=== PATIENT | male | born 1955 | race Caucasian/White ===

== ENCOUNTER → 2023-06-05 | Outpatient (REF) | payer MEDICARE, MEDICAID ==
[2023-06-05 13:02] LABS: HEMATOCRIT 35.8 % (42.0-52.0); HEMOGLOBIN 10.9 g/dl (13.5-17.5); MEAN CORPUSCULAR HEMOGLOBIN 30.3 pg (27.0-33.0); MEAN CORPUSCULAR HGB CONC 30.4 g/dl (32.0-36.5); MEAN CORPUSCULAR VOLUME 99.4 fl (80.0-96.0); PLATELET COUNT, AUTOMATED 290 10^3/uL (150-450); WHITE BLOOD COUNT 12.2 10^3/uL (4.0-10.0)
== END ==
LOC: SKLAB5 11:58
PROVIDERS: ATTEND Internal Medicine
DX: K62.5 Hemorrhage of anus and rectum (principal)

== ENCOUNTER → 2023-06-05 | Outpatient (REF) | payer MEDICARE, MEDICAID ==
[2023-06-05 09:39] LABS: THYROID STIMULATING HORMONE 2.241 uIU/ML (0.55-4.78)
[2023-06-05 09:40] LABS: FOLATE > 24.00 NG/ML (>5.4); VITAMIN B12 LEVEL 608 PG/ML (211-911)
[2023-06-05 09:48] LABS: ALBUMIN 2.7 G/DL (3.2-5.2); ALKALINE PHOSPHATASE 62 U/L (46-116); ALT/SGPT 34 U/L (7.0-40); AST/SGOT 14 U/L (<34); BILIRUBIN,TOTAL 0.3 MG/DL (0.3-1.2); BLOOD UREA NITROGEN 23 MG/DL (9-23); CALCIUM LEVEL 10.6 MG/DL (8.3-10.6); CARBON DIOXIDE LEVEL > 40.0 MMOL/L (20-31); CHLORIDE LEVEL 96 MMOL/L (98-107); CREATININE FOR GFR 0.64 MG/DL (0.70-1.30); GLOMERULAR FILTRATION RATE > 60.0 (>49); GLUCOSE, FASTING 93 MG/DL (74-106); POTASSIUM SERUM 4.5 MMOL/L (3.5-5.1); SODIUM LEVEL 146 MMOL/L (136-145); TOTAL PROTEIN 5.7 G/DL (5.7-8.2)
== END ==
LOC: SKLAB5 08:14
PROVIDERS: ATTEND Nurse Practitioner Family
DX: G40.909 Epilepsy, unspecified, not intractable, without status epilepticus (principal); Z79.899 Other long term (current) drug therapy; K62.5 Hemorrhage of anus and rectum

== ENCOUNTER → 2023-06-26 | Outpatient (REF) | payer MEDICARE, MEDICAID ==
[~2023-06-26] MED LIST: ALB2.5NEB NEB; ALBU8.5H INH; ALPR0.25 PO; APAP325T4 PO; BISA10SU20 PR; BUDE0.254 NEB; CALCCAP4 PO; COLA100C5 PO; DULO30CA47 PO; DULO60CA35 PO; ENSULIQ51 PO; FERR1TAB8 PO; FINA1TAB12 PO; FINA5TAB2 PO; FLEEENE12 PR; FLOM0.4C39 PO; FLON1SPR NARES; FORM20VI2 INH; FURO20TA2 PO; GABA-1171 PO; LEVE750T5 PO; METO50TA7 PO; MOM30SS2 PO; MONT10TA97 PO; OMEP1CAP73 PO; ONDA-83 PO; OXYC-517 PO; PRED10TA2 PO; ROPI0.5T33 PO; YUPE175S INH; ZOLO100T PO
== END ==
LOC: SKLAB5 09:45
PROVIDERS: ATTEND Internal Medicine
DX: J44.9 Chronic obstructive pulmonary disease, unspecified (principal)

== ENCOUNTER → 2023-07-03 | Outpatient (REF) | payer MEDICARE, MEDICAID ==
[~2023-07-03] MED LIST changes: +ALB2.5NEB INH; -ALB2.5NEB NEB; +BACI1CAP PO; +BUDE0.254 INH; -BUDE0.254 NEB; +GUAI600T54 PO; +LEVO1TAB40 PO; +POLY17PO18 PO
[2023-07-03 13:06] LABS: BASO % 0.2 % (0.0-1.0); EOS # 0.2 10^3/uL (0.0-0.5); EOS % 1.6 % (0.0-3.0); HEMATOCRIT 33.6 % (42.0-52.0); LYMPH # 0.7 10^3/uL (1.5-5.0); LYMPH % 6.8 % (24.0-44.0); MEAN CORPUSCULAR HEMOGLOBIN 29.9 pg (27.0-33.0); MEAN CORPUSCULAR HGB CONC 29.8 g/dl (32.0-36.5); MEAN CORPUSCULAR VOLUME 100.3 fl (80.0-96.0); MONO # 1.1 10^3/uL (0.0-0.8); MONO % 10.9 % (2.0-8.0); NEUTROPHILS % 79.9 % (36.0-66.0); PLATELET COUNT, AUTOMATED 205 10^3/uL (150-450); RED BLOOD COUNT 3.35 10^6/uL (4.30-6.10)
[2023-07-03 13:27] LABS: ALBUMIN 2.5 G/DL (3.2-5.2); ALKALINE PHOSPHATASE 69 U/L (46-116); ALT/SGPT 26 U/L (7.0-40); AST/SGOT 13 U/L (<34); BILIRUBIN,TOTAL 0.2 MG/DL (0.3-1.2); BLOOD UREA NITROGEN 15 MG/DL (9-23); CALCIUM LEVEL 8.7 MG/DL (8.3-10.6); CARBON DIOXIDE LEVEL > 40.0 MMOL/L (20-31); CHLORIDE LEVEL 98 MMOL/L (98-107); CREATININE FOR GFR 0.48 MG/DL (0.70-1.30); GLOMERULAR FILTRATION RATE > 60.0 (>49); GLUCOSE, FASTING 92 MG/DL (74-106); POTASSIUM SERUM 4.4 MMOL/L (3.5-5.1); SODIUM LEVEL 143 MMOL/L (136-145); TOTAL PROTEIN 5.1 G/DL (5.7-8.2)
== END ==
LOC: SKLAB5 12:14
PROVIDERS: ATTEND Nurse Practitioner Family
DX: J44.9 Chronic obstructive pulmonary disease, unspecified (principal); R11.0 Nausea; K59.00 Constipation, unspecified; R06.02 Shortness of breath

== ENCOUNTER 2023-07-04 14:50 | Inpatient (IN) | payer MEDICARE, MEDICAID ==
[~2023-07-04] VITALS: Ht 175.3 cm; Wt 50.0 kg
[~2023-07-04 14:50] MED LIST changes: -BACI1CAP PO; -GUAI600T54 PO; -LEVO1TAB40 PO; -POLY17PO18 PO
[2023-07-04] MEDS ORDERED: ALBUTEROL SULFATE 2.5MG/0.5ML INH NEB SOLN INH ONE (15:00)
[2023-07-04] MEDS ORDERED: methylPREDNISolone 125MG 2ML VIAL IV ONE (15:00)
[2023-07-04] MEDS ORDERED: IPRATROPIUM 0.5MG/ALBUTEROL 2.5MG INH SOL UD 3ML (DUONEB) NEB ONE (15:00)
[2023-07-04 15:15] LABS: ABG BASE EXCESS 9.4 (-2.0-2.0); ABG HCO3 37.1 MMOL/L (22.0-26.0); ABG PARTIAL PRESSURE O2 84.2 mmHg (75.0-100.0); ABG STANDARD HCO3 33.1 MMOL/L. (22.0-26.0); ABG TOTAL CO2 39.2 MMOL/L (23.0-31.0); ABG pH (ARTERIAL) 7.354 UNITS (7.350-7.450)
[2023-07-04 15:16] LABS: ABG PARTIAL PRESSURE CO2 68.2 mmHg (35.0-45.0)
[2023-07-04 15:19] LABS: BASO % 0.1 % (0.0-1.0); HEMATOCRIT 34.9 % (42.0-52.0); HEMOGLOBIN 10.6 g/dl (13.5-17.5); LYMPH # 0.4 10^3/uL (1.5-5.0); LYMPH % 3.2 % (24.0-44.0); MEAN CORPUSCULAR HEMOGLOBIN 30.3 pg (27.0-33.0); MEAN CORPUSCULAR HGB CONC 30.4 g/dl (32.0-36.5); MEAN CORPUSCULAR VOLUME 99.7 fl (80.0-96.0); MONO # 0.1 10^3/uL (0.0-0.8); NEUTROPHILS # 12.2 10^3/uL (1.5-8.5); NEUTROPHILS % 95.2 % (36.0-66.0); PLATELET COUNT, AUTOMATED 199 10^3/uL (150-450); WHITE BLOOD COUNT 12.8 10^3/uL (4.0-10.0)
[2023-07-04 15:34] LABS: INR 1.12
[2023-07-04 15:45] LABS: CK-MB VALUE MASS 1.9 NG/ML (<3.6)
[2023-07-04] MEDS ORDERED: ISOVUE-370 76% 100ML VIAL As Ordered ONE (15:46)
[2023-07-04 15:48] LABS: CPK CREATINE PHOSPHOKINASE 34 U/L (46-171); MB/CK RELATIVE INDEX 5.58 (< OR =4)
[2023-07-04 15:49] LABS: THYROXINE (T4) 7.3 UG/DL (4.5-10.9)
[2023-07-04 15:50] LABS: ALBUMIN 3.1 G/DL (3.2-5.2); ALKALINE PHOSPHATASE 79 U/L (46-116); ALT/SGPT 24 U/L (7.0-40); AST/SGOT 10 U/L (<34); BILIRUBIN,DIRECT < 0.1 MG/DL (<0.4); BILIRUBIN,TOTAL 0.2 MG/DL (0.3-1.2); BLOOD UREA NITROGEN 15 MG/DL (9-23); CALCIUM LEVEL 9.1 MG/DL (8.3-10.6); CARBON DIOXIDE LEVEL > 40.0 MMOL/L (20-31); CHLORIDE LEVEL 95 MMOL/L (98-107); CREATININE FOR GFR 0.53 MG/DL (0.70-1.30); GLOMERULAR FILTRATION RATE > 60.0 (>49); GLUCOSE, FASTING 155 MG/DL (74-106); POTASSIUM SERUM 5.2 MMOL/L (3.5-5.1); SODIUM LEVEL 140 MMOL/L (136-145); THYROID STIMULATING HORMONE 0.579 uIU/ML (0.55-4.78); TOTAL PROTEIN 6.6 G/DL (5.7-8.2)
[2023-07-04] MEDS ORDERED: ACETAMINOPHEN TAB 650MG DOSE (2X325MG) PO ONE (16:30)
[2023-07-04 16:44] LABS: CK-MB VALUE MASS < 1.0 NG/ML (<3.6)
[2023-07-04 16:48] LABS: CPK CREATINE PHOSPHOKINASE 36 U/L (46-171); MB/CK RELATIVE INDEX 2.77 (< OR =4)
[2023-07-04] MEDS ORDERED: IPRATROPIUM 0.5MG/ALBUTEROL 2.5MG INH SOL UD 3ML (DUONEB) NEB PRN (17:50)
[2023-07-04] MEDS: IPRATROPIUM 0.5MG/ALBUTEROL 2.5MG INH SOL UD 3ML (DUONEB) NEB SCH (19:49)
[2023-07-04] MEDS: BUDESONIDE 180MCG INHALER (PULMICORT FLEXHALER) INH SCH (20:00)
[2023-07-04] MEDS: AZITHROMYCIN 250MG TABLET PO SCH (20:47)
[2023-07-04] MEDS: cefTRIAXone SOD 2 GM in D5W MINI-BAG PLUS 50 ML IV SCH (20:47)
[2023-07-04] MEDS: methylPREDNISolone 40MG 1ML VIAL IV SCH (20:47)
[2023-07-04] MEDS: guaiFENesin 200 MG TAB PO SCH (22:24)
[2023-07-05] MEDS ORDERED: TAMSULOSIN 0.4 MG CAP PO ONE
[2023-07-05] MEDS ORDERED: levETIRAcetam 250MG TABLET (KEPPRA) PO ONE
[2023-07-05] MEDS: guaiFENesin 200 MG TAB PO SCH ×7 (00:41→23:45)
[2023-07-05] MEDS: IPRATROPIUM 0.5MG/ALBUTEROL 2.5MG INH SOL UD 3ML (DUONEB) NEB SCH ×4 (02:25→19:24)
[2023-07-05 07:25] LABS: HEMATOCRIT 32.4 % (42.0-52.0); HEMOGLOBIN 9.9 g/dl (13.5-17.5); LYMPH # 0.3 10^3/uL (1.5-5.0); MEAN CORPUSCULAR HGB CONC 30.6 g/dl (32.0-36.5); MEAN CORPUSCULAR VOLUME 98.2 fl (80.0-96.0); MONO # 0.6 10^3/uL (0.0-0.8); MONO % 7.2 % (2.0-8.0); NEUTROPHILS # 7.3 10^3/uL (1.5-8.5); NEUTROPHILS % 88.2 % (36.0-66.0); PLATELET COUNT, AUTOMATED 174 10^3/uL (150-450); WHITE BLOOD COUNT 8.3 10^3/uL (4.0-10.0)
[2023-07-05 07:55] LABS: BLOOD UREA NITROGEN 15 MG/DL (9-23); CALCIUM LEVEL 8.6 MG/DL (8.3-10.6); CARBON DIOXIDE LEVEL > 40.0 MMOL/L (20-31); CHLORIDE LEVEL 97 MMOL/L (98-107); CREATININE FOR GFR 0.46 MG/DL (0.70-1.30); GLOMERULAR FILTRATION RATE > 60.0 (>49); GLUCOSE, FASTING 122 MG/DL (74-106); MAGNESIUM LEVEL 2.1 MG/DL (1.8-2.4); SODIUM LEVEL 144 MMOL/L (136-145)
[2023-07-05] MEDS ORDERED: GUAI600T54 PO (09:27)
[2023-07-05] MEDS ORDERED: LEVO1TAB40 PO (09:27)
[2023-07-05] MEDS ORDERED: BACI1CAP PO (09:36)
[2023-07-05] MEDS ORDERED: POLY17PO18 PO (09:36)
[2023-07-05] MEDS: methylPREDNISolone 40MG 1ML VIAL IV SCH ×2 (09:42→20:17)
[2023-07-05] MEDS ORDERED: MED REC IN PROGRESS XX SCH (09:50)
[2023-07-05] MEDS ORDERED: PRED10TA2 PO (10:22)
[2023-07-05] MEDS: BUDESONIDE 180MCG INHALER (PULMICORT FLEXHALER) INH SCH ×2 (10:57→19:24)
[2023-07-05] MEDS: dilTIAZem 120MG **CD** CAPSULE PO SCH (11:15)
[2023-07-05] MEDS: ENOXAPARIN 40MG/0.4ML SYRINGE (J1650 PER 10MG) SC SCH (11:15)
[2023-07-05] MEDS: levETIRAcetam 250MG TABLET (KEPPRA) PO SCH ×2 (11:16→20:16)
[2023-07-05] MEDS: FORMOTEROL FUMARATE 20 MCG/2 ML INHALATION SOLUTION (PERFOROMIST) INH SCH ×2 (11:36→19:24)
[2023-07-05 14:49] VITALS: BP 133/69; TEMP 98.5; O2SAT 99
[2023-07-05] MEDS ORDERED: HOME MED LIST COMPLETE! XX SCH (15:05)
[2023-07-05] MEDS: ACETAMINOPHEN TAB 650MG DOSE (2X325MG) PO PRN (16:25)
[2023-07-05 19:09] VITALS: BP 123/67; TEMP 98.3; O2SAT 97
[2023-07-05] MEDS: AZITHROMYCIN 250MG TABLET PO SCH (20:16)
[2023-07-05] MEDS: TAMSULOSIN 0.4 MG CAP PO SCH (20:16)
[2023-07-05] MEDS: MONTELUKAST 10 MG TAB PO SCH (20:17)
[2023-07-05] MEDS: cefTRIAXone SOD 2 GM in D5W MINI-BAG PLUS 50 ML IV SCH (20:17)
[2023-07-05 23:32] VITALS: BP 137/66; TEMP 98.3; O2SAT 95
[2023-07-05] MEDS: oxyCODONE 5MG TAB PO PRN (23:45)
[2023-07-06] MEDS: IPRATROPIUM 0.5MG/ALBUTEROL 2.5MG INH SOL UD 3ML (DUONEB) NEB SCH ×5 (01:08→23:53)
[2023-07-06 03:57] VITALS: BP 124/70; TEMP 98.6; O2SAT 97
[2023-07-06] MEDS: guaiFENesin 200 MG TAB PO SCH ×5 (04:17→20:52)
[2023-07-06] MEDS: oxyCODONE 5MG TAB PO PRN ×2 (06:43→16:16)
[2023-07-06 07:06] LABS: BASO % 0.1 % (0.0-1.0); HEMATOCRIT 33.3 % (42.0-52.0); HEMOGLOBIN 10.1 g/dl (13.5-17.5); LYMPH # 0.5 10^3/uL (1.5-5.0); LYMPH % 3.8 % (24.0-44.0); MEAN CORPUSCULAR HEMOGLOBIN 30.1 pg (27.0-33.0); MEAN CORPUSCULAR HGB CONC 30.3 g/dl (32.0-36.5); MEAN CORPUSCULAR VOLUME 99.4 fl (80.0-96.0); MONO % 8.3 % (2.0-8.0); NEUTROPHILS # 10.4 10^3/uL (1.5-8.5); NEUTROPHILS % 87.3 % (36.0-66.0); PLATELET COUNT, AUTOMATED 191 10^3/uL (150-450); RED BLOOD COUNT 3.35 10^6/uL (4.30-6.10)
[2023-07-06 07:40] LABS: BLOOD UREA NITROGEN 20 MG/DL (9-23); CALCIUM LEVEL 8.7 MG/DL (8.3-10.6); CARBON DIOXIDE LEVEL > 40.0 MMOL/L (20-31); CHLORIDE LEVEL 100 MMOL/L (98-107); GLOMERULAR FILTRATION RATE > 60.0 (>49); GLUCOSE, FASTING 97 MG/DL (74-106); MAGNESIUM LEVEL 2.1 MG/DL (1.8-2.4); POTASSIUM SERUM 4.1 MMOL/L (3.5-5.1); SODIUM LEVEL 144 MMOL/L (136-145)
[2023-07-06 07:49] VITALS: BP 134/67; TEMP 97.2; O2SAT 99
[2023-07-06] MEDS: BUDESONIDE 180MCG INHALER (PULMICORT FLEXHALER) INH SCH ×2 (08:04→20:35)
[2023-07-06] MEDS: FORMOTEROL FUMARATE 20 MCG/2 ML INHALATION SOLUTION (PERFOROMIST) INH SCH ×2 (08:04→20:35)
[2023-07-06] MEDS: dilTIAZem 120MG **CD** CAPSULE PO SCH (08:41)
[2023-07-06] MEDS: ENOXAPARIN 40MG/0.4ML SYRINGE (J1650 PER 10MG) SC SCH (08:42)
[2023-07-06] MEDS: levETIRAcetam 250MG TABLET (KEPPRA) PO SCH ×2 (08:42→20:52)
[2023-07-06] MEDS: ACETAMINOPHEN TAB 650MG DOSE (2X325MG) PO PRN ×2 (08:43→19:57)
[2023-07-06] MEDS ORDERED: predniSONE 20 MG TAB PO SCH (09:00)
[2023-07-06 12:02] VITALS: BP 136/62; TEMP 98.2; O2SAT 97
[2023-07-06] MEDS: METOPROLOL TART 50 MG TAB PO SCH (12:04)
[2023-07-06] MEDS ORDERED: SODIUM CHLORIDE 0.9% NASAL GEL 15GM (AYR) PRN (16:00)
[2023-07-06 16:07] VITALS: BP 130/66; TEMP 97.5; O2SAT 98
[2023-07-06 19:22] VITALS: BP 122/76; TEMP 99; O2SAT 94
[2023-07-06] MEDS: ONDANSETRON 4MG 2ML VIAL IV PRN (19:53)
[2023-07-06] MEDS: cefTRIAXone SOD 2 GM in D5W MINI-BAG PLUS 50 ML IV SCH (19:53)
[2023-07-06 19:57] VITALS: O2SAT 94
[2023-07-06] MEDS: MONTELUKAST 10 MG TAB PO SCH (20:52)
[2023-07-06] MEDS: TAMSULOSIN 0.4 MG CAP PO SCH (20:52)
[2023-07-06] MEDS: AZITHROMYCIN 250MG TABLET PO SCH (20:52)
[2023-07-07] VITALS (7 sets, daily range): BP systolic 108–129; BP diastolic 58–87; TEMP 97.3–98.8; O2SAT 95–100
[2023-07-07] MEDS: guaiFENesin 200 MG TAB PO SCH ×6 (00:19→21:21)
[2023-07-07] MEDS: oxyCODONE 5MG TAB PO PRN ×5 (00:19→23:00)
[2023-07-07] MEDS: ACETAMINOPHEN TAB 650MG DOSE (2X325MG) PO PRN ×3 (04:10→21:22)
[2023-07-07 06:28] LABS: BASO % 0.1 % (0.0-1.0); EOS # 0.1 10^3/uL (0.0-0.5); EOS % 0.7 % (0.0-3.0); HEMATOCRIT 36.1 % (42.0-52.0); HEMOGLOBIN 10.7 g/dl (13.5-17.5); LYMPH # 0.9 10^3/uL (1.5-5.0); MEAN CORPUSCULAR HEMOGLOBIN 30.1 pg (27.0-33.0); MEAN CORPUSCULAR HGB CONC 29.6 g/dl (32.0-36.5); MEAN CORPUSCULAR VOLUME 101.4 fl (80.0-96.0); MONO # 0.8 10^3/uL (0.0-0.8); MONO % 8.9 % (2.0-8.0); NEUTROPHILS # 6.8 10^3/uL (1.5-8.5); NEUTROPHILS % 79.8 % (36.0-66.0); PLATELET COUNT, AUTOMATED 161 10^3/uL (150-450); RED BLOOD COUNT 3.56 10^6/uL (4.30-6.10); WHITE BLOOD COUNT 8.5 10^3/uL (4.0-10.0)
[2023-07-07 06:54] LABS: BLOOD UREA NITROGEN 13 MG/DL (9-23); CALCIUM LEVEL 8.3 MG/DL (8.3-10.6); CARBON DIOXIDE LEVEL > 40.0 MMOL/L (20-31); CHLORIDE LEVEL 100 MMOL/L (98-107); CREATININE FOR GFR 0.47 MG/DL (0.70-1.30); GLOMERULAR FILTRATION RATE > 60.0 (>49); GLUCOSE, FASTING 85 MG/DL (74-106); MAGNESIUM LEVEL 1.9 MG/DL (1.8-2.4); POTASSIUM SERUM 3.9 MMOL/L (3.5-5.1); SODIUM LEVEL 143 MMOL/L (136-145)
[2023-07-07] MEDS: IPRATROPIUM 0.5MG/ALBUTEROL 2.5MG INH SOL UD 3ML (DUONEB) NEB SCH ×3 (08:11→21:27)
[2023-07-07] MEDS: FORMOTEROL FUMARATE 20 MCG/2 ML INHALATION SOLUTION (PERFOROMIST) INH SCH ×2 (08:11→21:34)
[2023-07-07] MEDS: BUDESONIDE 180MCG INHALER (PULMICORT FLEXHALER) INH SCH ×2 (08:11→21:35)
[2023-07-07] MEDS: levETIRAcetam 250MG TABLET (KEPPRA) PO SCH ×2 (08:31→21:21)
[2023-07-07] MEDS: ENOXAPARIN 40MG/0.4ML SYRINGE (J1650 PER 10MG) SC SCH (08:32)
[2023-07-07] MEDS: METOPROLOL TART 50 MG TAB PO SCH (08:32)
[2023-07-07] MEDS: ONDANSETRON 4MG 2ML VIAL IV PRN ×2 (10:01→17:53)
[2023-07-07] MEDS ORDERED: MAGNESIUM CITRATE 300ML BTL PO ONE (18:00)
[2023-07-07] MEDS: SENOKOT S TAB PO SCH (21:21)
[2023-07-07] MEDS: TAMSULOSIN 0.4 MG CAP PO SCH (21:21)
[2023-07-07] MEDS: MONTELUKAST 10 MG TAB PO SCH (21:21)
[2023-07-07] MEDS: CEFDINIR 300 MG CAP (OMNICEF) PO SCH (21:21)
[2023-07-07] MEDS ORDERED: LEVALBUTEROL 1.25MG 0.5ML CONCENTRATE NEB NEB ONE (22:35)
[2023-07-07] MEDS ORDERED: NS 500 ML IV ONE (23:00)
[2023-07-08] VITALS (22 sets, daily range): BP systolic 88–173; BP diastolic 52–83; TEMP 97.6–98.9; O2SAT 66–99
[2023-07-08] MEDS: guaiFENesin 200 MG TAB PO SCH ×6 (00:39→19:55)
[2023-07-08] MEDS: ONDANSETRON 4MG 2ML VIAL IV PRN (00:39)
[2023-07-08] MEDS ORDERED: CALCIUM CARBONATE 500 MG CHEW U/D PO ONE (01:10)
[2023-07-08] MEDS: IPRATROPIUM 0.5MG/ALBUTEROL 2.5MG INH SOL UD 3ML (DUONEB) NEB SCH ×4 (02:18→19:27)
[2023-07-08] MEDS: ACETAMINOPHEN TAB 650MG DOSE (2X325MG) PO PRN (04:54)
[2023-07-08 06:14] LABS: BLOOD UREA NITROGEN 12 MG/DL (9-23); CALCIUM LEVEL 8.3 MG/DL (8.3-10.6); CARBON DIOXIDE LEVEL > 40.0 MMOL/L (20-31); CHLORIDE LEVEL 102 MMOL/L (98-107); CREATININE FOR GFR 0.46 MG/DL (0.70-1.30); GLOMERULAR FILTRATION RATE > 60.0 (>49); GLUCOSE, FASTING 99 MG/DL (74-106); MAGNESIUM LEVEL 2.2 MG/DL (1.8-2.4); POTASSIUM SERUM 4.3 MMOL/L (3.5-5.1); SODIUM LEVEL 143 MMOL/L (136-145)
[2023-07-08 08:10] LABS: ABG BASE EXCESS 5.1 (-2.0-2.0); ABG HCO3 35.6 MMOL/L (22.0-26.0); ABG O2 SATURATION 97.1 % (95.0-99.0); ABG PARTIAL PRESSURE O2 101.6 mmHg (75.0-100.0); ABG TOTAL CO2 38.4 MMOL/L (23.0-31.0)
[2023-07-08 08:14] LABS: ABG PARTIAL PRESSURE CO2 91.5 mmHg (35.0-45.0); ABG pH (ARTERIAL) 7.208 UNITS (7.350-7.450)
[2023-07-08] MEDS: FORMOTEROL FUMARATE 20 MCG/2 ML INHALATION SOLUTION (PERFOROMIST) INH SCH ×2 (08:45→19:27)
[2023-07-08] MEDS ORDERED: methylPREDNISolone 125MG 2ML VIAL IV ONE (09:00)
[2023-07-08] MEDS ORDERED: BISACODYL 10MG SUPP PR SCH (09:00)
[2023-07-08] MEDS ORDERED: METOPROLOL TART 25 MG TABLET PO SCH (09:00)
[2023-07-08] MEDS: ENOXAPARIN 40MG/0.4ML SYRINGE (J1650 PER 10MG) SC SCH (09:33)
[2023-07-08] MEDS: SENOKOT S TAB PO SCH ×2 (11:23→19:55)
[2023-07-08] MEDS: CEFDINIR 300 MG CAP (OMNICEF) PO SCH (11:23)
[2023-07-08] MEDS: levETIRAcetam INJection 750 MG in D5W 100 ML IV SCH ×2 (11:24→21:42)
[2023-07-08] MEDS: BUDESONIDE 0.5 MG/2 ML INHALATION SUSPENSION NEB SCH ×2 (11:34→19:26)
[2023-07-08 12:58] LABS: VENOUS BASE EXCESS 13.8 (-2.0-2.0); VENOUS HCO3 44.2 MMOL/L (23.0-27.0); VENOUS O2 SATURATION 92.8 % (60.0-80.0); VENOUS PARTIAL PRESSURE CO2 93.8 mmHg (38.0-50.0); VENOUS PARTIAL PRESSURE O2 65.3 mmHg (30.0-50.0); VENOUS PH 7.291 UNITS (7.330-7.430); VENOUS STANDARD HCO3 37.5 MMOL/L; VENOUS TOTAL CO2 47.1 MMOL/L (24.0-28.0)
[2023-07-08 15:02] LABS: VENOUS BASE EXCESS 13.3 (-2.0-2.0); VENOUS HCO3 43.9 MMOL/L (23.0-27.0); VENOUS O2 SATURATION 99.3 % (60.0-80.0); VENOUS PARTIAL PRESSURE CO2 95.2 mmHg (38.0-50.0); VENOUS PARTIAL PRESSURE O2 203.1 mmHg (30.0-50.0); VENOUS PH 7.282 UNITS (7.330-7.430); VENOUS STANDARD HCO3 37.2 MMOL/L; VENOUS TOTAL CO2 46.9 MMOL/L (24.0-28.0)
[2023-07-08] MEDS: methylPREDNISolone 40MG 1ML VIAL IV SCH ×2 (15:45→21:42)
[2023-07-08] MEDS ORDERED: cefTRIAXone SOD 1 GM in D5W MINI-BAG PLUS 50 ML IV SCH (16:00)
[2023-07-08 18:13] LABS: VENOUS BASE EXCESS 12.8 (-2.0-2.0); VENOUS HCO3 39.4 MMOL/L (23.0-27.0); VENOUS O2 SATURATION 99.3 % (60.0-80.0); VENOUS PARTIAL PRESSURE CO2 60.8 mmHg (38.0-50.0); VENOUS PARTIAL PRESSURE O2 201.3 mmHg (30.0-50.0); VENOUS SITE NOT GIVEN; VENOUS STANDARD HCO3 36.6 MMOL/L; VENOUS TOTAL CO2 41.3 MMOL/L (24.0-28.0)
[2023-07-08] MEDS: TAMSULOSIN 0.4 MG CAP PO SCH (19:55)
[2023-07-08] MEDS: MONTELUKAST 10 MG TAB PO SCH (19:56)
[2023-07-09] VITALS (68 sets, daily range): BP systolic 55–218; BP diastolic 37–116; TEMP 97.5–98.2; O2SAT 77–100
[2023-07-09] MEDS: guaiFENesin 200 MG TAB PO SCH (01:00)
[2023-07-09] MEDS: IPRATROPIUM 0.5MG/ALBUTEROL 2.5MG INH SOL UD 3ML (DUONEB) NEB SCH ×3 (02:38→13:30)
[2023-07-09] MEDS ORDERED: MIDAZOLAM 100MG/100ML-0.9%NACL 100 MG in IV 1 EA IV SCH (03:20)
[2023-07-09] MEDS ORDERED: D5W/LR 1,000 ML IV SCH (03:20)
[2023-07-09] MEDS ORDERED: NS 500 ML IV ONE ×3 (03:20→04:30)
[2023-07-09] MEDS ORDERED: MIDAZOLAM INJ 2MG/2ML VIAL As Ordered ONE ×2 (03:23→03:26)
[2023-07-09] MEDS ORDERED: MIDAZOLAM INJ 2MG/2ML VIAL IV STA ×2 (03:25→04:33)
[2023-07-09] MEDS ORDERED: dilTIAZem 25MG/5ML VIAL IV STA (03:26)
[2023-07-09] MEDS ORDERED: MIDAZOLAM INJ 2MG/2ML VIAL IV ONE (04:00)
[2023-07-09] MEDS ORDERED: MIDAZOLAM 5MG/ML 1ML VIAL As Ordered ONE (04:30)
[2023-07-09] MEDS ORDERED: fentaNYL CITRATE/NaCl 1,000 MCG in IV 1 EA IV SCH (04:35)
[2023-07-09] MEDS ORDERED: FENTANYL DRIP LOCK BOX KEY 1 EACH XX PRN (04:35)
[2023-07-09] MEDS: methylPREDNISolone 40MG 1ML VIAL IV SCH ×2 (04:55→09:02)
[2023-07-09] MEDS ORDERED: levETIRAcetam INJection 500 MG in D5W MINI-BAG PLUS 100 ML IV ONE (05:00)
[2023-07-09 05:03] LABS: ABG BASE EXCESS 5.1 (-2.0-2.0); ABG HCO3 34.1 MMOL/L (22.0-26.0); ABG O2 SATURATION 99.6 % (95.0-99.0); ABG PARTIAL PRESSURE O2 348.3 mmHg (75.0-100.0); ABG STANDARD HCO3 29.1 MMOL/L. (22.0-26.0); ABG TOTAL CO2 36.5 MMOL/L (23.0-31.0); ABG pH (ARTERIAL) 7.264 UNITS (7.350-7.450)
[2023-07-09 06:08] LABS: BLOOD UREA NITROGEN 20 MG/DL (9-23); CALCIUM LEVEL 7.9 MG/DL (8.3-10.6); CARBON DIOXIDE LEVEL 36 MMOL/L (20-31); CHLORIDE LEVEL 103 MMOL/L (98-107); CREATININE FOR GFR 0.52 MG/DL (0.70-1.30); GLOMERULAR FILTRATION RATE > 60.0 (>49); GLUCOSE, FASTING 158 MG/DL (74-106); MAGNESIUM LEVEL 2.1 MG/DL (1.8-2.4); POTASSIUM SERUM 5.5 MMOL/L (3.5-5.1); SODIUM LEVEL 142 MMOL/L (136-145)
[2023-07-09] MEDS: BUDESONIDE 0.5 MG/2 ML INHALATION SUSPENSION NEB SCH (08:07)
[2023-07-09] MEDS: FORMOTEROL FUMARATE 20 MCG/2 ML INHALATION SOLUTION (PERFOROMIST) INH SCH (08:07)
[2023-07-09] MEDS ORDERED: MIDAZOLAM INJ 2MG/2ML VIAL IV PRN (08:50)
[2023-07-09] MEDS ORDERED: levETIRAcetam INJection 1,000 MG in D5W 100 ML IV SCH (09:00)
[2023-07-09] MEDS: ENOXAPARIN 40MG/0.4ML SYRINGE (J1650 PER 10MG) SC SCH (09:03)
[2023-07-09] MEDS ORDERED: propofoL 1,000 MG in IV 1 EA IV SCH (09:10)
[2023-07-09] MEDS ORDERED: PROPOFOL 1,000 MG/100 ML VIAL As Ordered ONE (09:12)
[2023-07-09] MEDS ORDERED: DEXTROSE 50% 50ML SYRINGE IV STA (09:37)
[2023-07-09] MEDS ORDERED: HumuLIN R (REGULAR) INSULIN (NovoLIN R) **100U/ML** PER UNIT IV STA (09:37)
[2023-07-09] MEDS ORDERED: CALCIUM GLUCONATE 1,000 MG in D5W MINI-BAG PLUS 100 ML IV ONE (09:40)
[2023-07-09] MEDS ORDERED: FUROSEMIDE 20MG/2ML VIAL IV ONE (09:40)
[2023-07-09] MEDS ORDERED: LR 500 ML IV ONE (10:45)
[2023-07-09] MEDS ORDERED: NOREPINEPHRINE BITARTRATE 16 MG in D5W 484 ML IV SCH (11:10)
[2023-07-09] MEDS ORDERED: NOREPINEPHRINE 4MG IN D5 250ML 4 MG in IV 1 EA IV SCH ×2 (11:25)
[2023-07-09] MEDS ORDERED: MORPHINE 2 MG/ML 1ML VIAL IV PRN (13:00)
[2023-07-09] MEDS ORDERED: ONDANSETRON 4MG 2ML VIAL IV PRN (13:00)
[2023-07-09] MEDS ORDERED: LORazepam 2 MG/ML 1ML VIAL IV PRN (13:00)
[2023-07-09] MEDS ORDERED: HYOSCYAMINE SULFATE 0.125 MG SUBL TABLET PO PRN (13:00)
[2023-07-09] MEDS ORDERED: ATROPINE SULFATE 1% OPHTH SOLN 2ML BTL SL PRN (13:00)
[2023-07-09] MEDS: MORPHINE 2 MG/ML 1ML VIAL IV PRN (16:12)
[2023-07-09] MEDS: PERCOCET 5MG/325MG TAB PO PRN (21:22)
[2023-07-10] MEDS: LORazepam 2 MG/ML 1ML VIAL IV PRN ×3 (02:59→22:41)
[2023-07-10] MEDS ORDERED: ACETAMINOPHEN TAB 650MG DOSE (2X325MG) PO PRN (03:45)
[2023-07-10] MEDS ORDERED: IPRATROPIUM 0.5MG/ALBUTEROL 2.5MG INH SOL UD 3ML (DUONEB) NEB PRN (03:45)
[2023-07-10] MEDS: MORPHINE 2 MG/ML 1ML VIAL IV PRN ×3 (11:56→22:42)
[2023-07-11] MEDS: MORPHINE 2 MG/ML 1ML VIAL IV PRN ×5 (07:17→21:03)
[2023-07-11] MEDS: PERCOCET 5MG/325MG TAB PO PRN (07:41)
[2023-07-11] MEDS: LORazepam 2 MG/ML 1ML VIAL IV PRN (21:03)
[2023-07-12] MEDS: MORPHINE 2 MG/ML 1ML VIAL IV PRN ×2 (08:45→22:36)
[2023-07-12] MEDS: LORazepam 2 MG/ML 1ML VIAL IV PRN ×2 (08:46→22:36)
[2023-07-13] MEDS: MORPHINE 2 MG/ML 1ML VIAL IV PRN ×4 (09:35→14:30)
[2023-07-13] MEDS: LORazepam 2 MG/ML 1ML VIAL IV PRN ×2 (11:40→14:30)
[2023-07-13] MEDS ORDERED: MORPHINE 30 MG SA TAB PO PRN (15:20)
[2023-07-13] MEDS: LORazepam 1 MG TAB PO PRN (19:56)
[2023-07-13] MEDS: PERCOCET 5MG/325MG TAB PO PRN (19:58)
[2023-07-13] MEDS ORDERED: MORPHINE 10MG/0.5ML ORAL CONCENTRATE SOLUTION U/D SL PRN (22:15)
[2023-07-13] MEDS ORDERED: SCOPOLAMINE 1MG TRANSDERMAL PATCH TOP SCH (23:20)
[2023-07-14] MEDS: LORazepam 1 MG TAB PO PRN (01:35)
== END 2023-07-14 11:45 | disposition expired | DRG 208 ==
LOC: M ED 14:50 → M ED INP 17:50 → M PCU 07-05 14:42 → M ICU 07-08 08:35 → M MSPAV 07-09 16:25
PROVIDERS: ADMIT Family Medicine; ATTEND Internal Medicine
PROC: 5A1935Z Respiratory Ventilation, Less than 24 Consecutive Hours (ICD-10-PCS; principal; 2023-07-09)
PROC: 0W9930Z Drainage of Right Pleural Cavity with Drainage Device, Percutaneous Approach (ICD-10-PCS; 2023-07-09)
PROC: 0BH17EZ Insertion of Endotracheal Airway into Trachea, Via Natural or Artificial Opening (ICD-10-PCS; 2023-07-09)
DX: J96.22 Acute and chronic respiratory failure with hypercapnia (principal); G93.41 Metabolic encephalopathy; J93.0 Spontaneous tension pneumothorax; J44.1 Chronic obstructive pulmonary disease with (acute) exacerbation; J98.11 Atelectasis; E87.20 Acidosis, unspecified; R64 Cachexia; J44.9 Chronic obstructive pulmonary disease, unspecified; K59.00 Constipation, unspecified; B97.81 Human metapneumovirus as the cause of diseases classified elsewhere; I95.9 Hypotension, unspecified; I27.20 Pulmonary hypertension, unspecified; E87.5 Hyperkalemia; I27.81 Cor pulmonale (chronic); Z66 Do not resuscitate; G47.33 Obstructive sleep apnea (adult) (pediatric); J96.21 Acute and chronic respiratory failure with hypoxia; G25.81 Restless legs syndrome; I48.0 Paroxysmal atrial fibrillation; F32.A Depression, unspecified; F41.9 Anxiety disorder, unspecified; N40.0 Benign prostatic hyperplasia without lower urinary tract symptoms; G40.909 Epilepsy, unspecified, not intractable, without status epilepticus; Z79.52 Long term (current) use of systemic steroids; Z79.899 Other long term (current) drug therapy; Z88.8 Allergy status to other drugs, medicaments and biological substances; Z86.16 Personal history of COVID-19